=== PATIENT | female | born 1980 | race African-American/Black ===

== ENCOUNTER 2024-10-20 21:45 | Emergency (ER) | payer MEDICARE, OTHER ==
[~2024-10-20] VITALS: Ht 160 cm; Wt 87.5 kg
[2024-10-20 21:50] VITALS: PULSE 82; RESP 18; TEMP 98.5
[2024-10-20] MEDS ORDERED: FAMOTIDINE 20 MG/2 ML VIAL IV STA (22:32)
[2024-10-20] MEDS ORDERED: ONDANSETRON HCL INJ 2MG/ML 2ML 2 MG/ML VIAL IV STA (22:32)
[2024-10-20] MEDS ORDERED: SODIUM CHLORIDE 0.9% 1000ML 1,000 ML IV ONE (22:45)
[2024-10-20] MEDS ORDERED: IOPAMIDOL 370 MG/ML 100 ML INFUS..BTL INJ ONE (22:59)
[2024-10-21] MEDS ORDERED: CLARITHROMYCIN500 MG PO (00:49)
[2024-10-21] MEDS ORDERED: OMEPRAZOLE40 MG PO (00:49)
[2024-10-21] MEDS ORDERED: METRONIDAZOLE500 MG PO (00:49)
[2024-10-21] MEDS: ONDANSETRON HCL 4 MG ORAL DISINTEGRATING TAB PO ONE (01:04)
[2024-10-21] MEDS: BELLADONNA ALK/PHENOBARBITAL 5 ML UDC PO ONE (01:05)
[2024-10-21] MEDS: MAGNESIUM/ALUMINUM/SIMETHICONE 30 ML UDC PO ONE (01:09)
[2024-10-21] MEDS: TRAMADOL HCL 50 MG TAB PO ONE (01:10)
[2024-10-21 01:13] VITALS: BP 118/66; PULSE 66; RESP 16; O2SAT 98
[2024-10-21] MEDS ORDERED: MAGNESIUM/ALUMINUM/SIMETHICONE 30 ML UDC PO ONE (01:15)
[2024-10-21] MEDS ORDERED: TRAMADOL HCL 50 MG TAB PO ONE (01:15)
== END 2024-10-21 01:16 | disposition home or self-care (01) ==
LOC: FSED 22:23
DX: R10.13 Epigastric pain (principal)
CPT/HCPCS: 99284; Q0162; Q9967